=== PATIENT | male | born 1955 | race African-American/Black ===

== ENCOUNTER 2018-04-03 16:09 | Emergency (ER) | payer MEDICAID ==
[~2018-04-03] VITALS: Ht 175.3 cm; Wt 68.0 kg
[2018-04-03] MEDS ORDERED: SODIUM CHLORIDE 0.9% 1,000 ML IV ONE (16:58)
[2018-04-03] MEDS ORDERED: PROCHLORPERAZINE 10MG/2ML VIAL IV STA (17:33)
[2018-04-03 17:41] LABS: BASOPHILS % 0.5 % (0.0-2.0); EOSINOPHILS % 0.9 % (0.0-5.0); HEMATOCRIT. 43.7 % (42.0-52.0); HEMOGLOBIN. 15.1 g/dL (14.0-18.0); LYMPHOCYTES % 28.4 % (20.0-50.0); MEAN CORPUSCULAR HEMOGLOBIN 34.1 pg (28.0-32.0); MEAN PLATELET VOLUME 10.3 fl (7.4-10.4); MONOCYTES % 10.6 % (2.0-8.0); NEUTROPHILS % 59.6 % (40.0-76.0); PLATELET 158 x1000/uL (130-400); RED BLOOD CELL COUNT 4.42 mill/uL (4.7-6.1); RED CELL DISTRIBUTION WIDTH 13.8 % (11.6-14.6)
[2018-04-03] MEDS ORDERED: SUMATRIPTAN SUCCINATE 6MG/0.5ML VIAL SUBCUT ONE (17:45)
[2018-04-03 17:46] LABS: CHLORIDE 104 mEq/L (98-107)
[2018-04-03 17:54] LABS: PROTHROMBIN TIME 10.1 sec (9.1-11.1)
[2018-04-03] MEDS ORDERED: IOHEXOL-350 100 ML BOTTLE ONE (18:43)
[2018-04-03 20:23] LABS: CLARITY URINE CLEAR (CLEAR); COLOR URINE YELLOW (YELLOW); KETONES URINE 1+ (NEGATIVE); LEUKOCYTE ESTERASE URINE NEGATIVE (NEGATIVE); NITRITE URINE NEGATIVE (NEGATIVE); OCCULT BLOOD URINE NEGATIVE (NEGATIVE); PROTEIN URINE NEGATIVE (NEGATIVE); SPECIFIC GRAVITY URINE 1.023 (1.005-1.030)
[2018-04-03 21:08] VITALS: BP 118/71
== END 2018-04-03 21:11 | disposition home or self-care (01) ==
LOC: ER 16:23
DX: M54.2 Cervicalgia (principal); R03.0 Elevated blood-pressure reading, without diagnosis of hypertension; F12.90 Cannabis use, unspecified, uncomplicated; Z72.0 Tobacco use
CPT/HCPCS: 36415; 70496; 70498; 80053; 81003; 84484; 85025; 85610; 93005; 96372; 96374; 99285; J0780; J3030; J7030; Q9967